=== PATIENT | male | born 1980 | race Caucasian/White ===

== ENCOUNTER 2019-06-15 14:46 | Emergency (ER) | payer OTHER ==
--- OUTSIDE RECORDS SUMMARY | 2019-06-15 14:53 | XMS REPORT | Continuity of Care Document ---
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 Tablets Thalomid 50MG Unknown Bactrim DS tid Unknown 800-160mg Tablets Azathioprine 3 1/2 Tabs Per Unknown 50mg Tablets Day Prednisone as Needed Unknown 5mg Tablets Immunizations Description No Information Available Vital Signs Date Vital Result Comment 04/17/2019 1:43pm BP Systolic 120 mmHg BP Diastolic 80 mmHg Heart Rate 80 /min Respiratory Rate 18 /min Height 69 inches 5'9" Weight 209.00 lb BMI (Body Mass Index) 30.9 kg/m2 Results Test Date Facility Test Result H/L Range Note Dina Panel--LD ([facility]) 04/17/2019 [facility] Rheumatoid Factor <pending> Procedures Description No Information Available Medical Devices Description No Information Available Encounters Description No Information Available Assessments Date Code Description Provider 04/17/2019 L43.9 Lichen planus, unspecified JORGE Lux 04/17/2019 J67.8 Hypersensitivity pneumonitis due to other JORGE Lux organic dusts 04/17/2019 M79.672 Pain in left foot JORGE Lux 04/17/2019 M79.671 Pain in right foot JORGE Lux 04/17/2019 R63.4 Abnormal weight loss JORGE Lux 04/17/2019 G25.0 Essential tremor JORGE Lux 04/17/2019 J30.9 Allergic rhinitis, unspecified JORGE Lux Plan of Treatment Future Appointment(s):05/15/2019 9:30 am - Mahendra Smith M.D. at [facility]/28/2019 9:00 am - Mahendra Smith M.D. at [facility]0204/17/2019 - Annalisa Ochoa, PAL43.9 Lichen planus, unspecifiedComments:Referral to Ui Developer With [employer] - Dr. Rivers Obtain previous records.J67.8 Hypersensitivity pneumonitis due to other organic dustsComments:See Supply Chain Associate for further treatment Dr. Pool79.672 Pain in left footComments:Possibly related to tight Plantar fascia both feet. Roll feet over tennis ball,epsom salt soaksPhysical Therapy if pain nltymkcD42.671 Pain in right footR63.4 Abnormal weight lossG25.0 Essential tremorComments:MonitorFollow up with Dr. Smith in 1 tvvxmG22.9 Allergic rhinitis, unspecifiedComments:Try Xyzal for allergies.AllNew Medication:Xyzal Allergy 24HR 5 mg - 1 tablet once dailyComments:PCMHMedication Management Patient Understands medications he's taking? Yes Are there Barriers to Adherence? No Has the patient been asked about herbal supplements and therapies, and OTC meds? Yes Care Plan1. Patient has been queried about patient's goals/preferences and functional/lifestyle goals at relevant visits. Yes If relevant, describe: N/A2. Treatment goals as explained to the patient: above3. Are there barriers to meeting treatment goals? No If Yes, please describe:4. Self-Management goals as described to the patient: Yes As always, we strongly encourage a healthy diet and making physical activity a part of your every day life. If you have questions about how or where to start, please contact the office.Follow up: Dr. Smith in the next 1-2 months. Functional Status Description No Information Available Mental Status Description No Information Available Referrals Description No Information Available
--- OUTSIDE RECORDS SUMMARY | 2019-06-15 14:53 | XMS REPORT | Continuity of Care Document ---
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 [phone] Medicine Problems Description No Information Available Social History Type Date Description Comments Sex Unknown ETOH Use Currently consumes alcohol Tobacco Use Start: Unknown Patient has never smoked Recreational Drug Use Denies Drug Use Allergies, Adverse Reactions, Alerts Description No Known Drug Allergies Medications Active Medications SIG Qnty Indications Ordering Provider Date Daily-Ismael 1 by mouth 90tabs Other Ordering 05/13/2019 Tablets every day Provider Vitamin C Plus 1 by mouth Other Ordering 05/13/2019 500mg every day Provider Tablets Prednisone 3 tab by mouth 101units J98.4 Barry Galvan MD 05/13/2019 10mg (48) TBPK every day for 30 days then 2 tabs every day for 3 days, then 1 tabs every day for 5 days then stop Bactrim DS 1 tab by mouth 36tabs J98.4 Barry Galvan MD 05/13/2019 800-160mg three times a Tablets week Xyzal 1 by mouth Unknown 5mg Tablets every day Thalomid Unknown 50mg Capsules Bactrim DS 1 by mouth Unknown 800-160mg twice a day Tablets Azathioprine 2 by mouth one Unknown 50mg Tablets time per day Prednisone 1 by mouth Unknown 5mg Tablets every day Immunizations Description No Information Available Vital Signs Date Vital Result Comment 05/13/2019 10:58am Height 72 inches 6'0" Weight 209.00 lb Heart Rate 74 /min BP Systolic 132 mmHg BP Diastolic 82 mmHg O2 % BldC Oximetry 99 % BMI (Body Mass Index) 28.3 kg/m2 Results Description No Information Available Procedures Description No Information Available Medical Devices Description No Information Available Encounters Description No Information Available Assessments Date Code Description Provider 05/13/2019 J98.4 Other disorders of lung Barry Galvan MD Plan of Treatment 05/13/2019 - Barry Galvan MDJ98.4 Other disorders of lungNew Medication: Prednisone 10 mg (48) - 3 tab by mouth every day for 30 days then 2 tabs every day for 3 days, then 1 tabs every day for 5 days then stopBactrim DS 800-160 mg - 1 tab by mouth three times a weekComments:I will increase the patient's prednisone to 30 mg a day for 1 month which is a treatment he has donein the past. He will continue Bactrim for pneumocystis prophylaxis 3 times a week he will use saline nasal spray. We will review the labs the CAT scan PFTs and echocardiogram from [place]. The patient should continue age-appropriate cancer screening as the patient has had weight loss. Functional Status Description No Information Available Mental Status Description No Information Available Referrals Description No Information Available
[2019-06-15 15:09] VITALS: BP 139/86
--- NOTE | 2019-06-15 16:26 | UC ---
FLU HPI - HPI Summary HPI Summary: 38-year-old male with history of hypersensitivity pneumonitis presents with 7-8 day history of cold-like symptoms. States initially and some nasal congestion and runny nose and then after approximately 4-5 days began developing a productive cough. Over the last 2-3 days he has had increased shortness of breath and fatigue. Cough is occasionally productive. Patient is currently on azathioprine and low dose prednisone for his hypersensitivity pneumonitis is also taking Bactrim DS 1 tablet 3 times a week for infection prophylaxis. Has appointment with his sales development representative scheduled in one week. Denies fever, chills , ear pain, sore throat, chest pain, or wheezing. - History of Current Complaint Chief Complaint: UCRespiratory Stated Complaint: COLD, SOB , BODYACHES Time Seen by Provider: 06/15/19 16:04 Hx Obtained From: Patient Pain Intensity: 0 - Allergy/Home Medications Allergies/Adverse Reactions: Allergies Allergy/AdvReac Type Severity Reaction Status Date / Time No Known Allergies Allergy Verified 06/15/19 15:10 Home Medications: Home Medications Sulfamethox/Trimethoprim DS* [Bactrim DS 800/160 TAB*] 1 tab PO EVERY OTHER DAY 06/15/19 [History Confirmed 06/15/19] azaTHIOprine TAB(*) [Imuran TAB(*)] 175 mg PO DAILY 06/15/19 [History Confirmed 06/15/19] predniSONE [Prednisone 5 MG TAB] 1 tab PO DAILY 06/15/19 [History Confirmed 01/25] PMH/Surg Hx/FS Hx/Imm Hx Respiratory History: Other - Hypersensitivity pneumonitis - Surgical History Surgical History: None - Family History Known Family History: Positive: Non-Contributory - Social History Occupation: Employed Full-time Lives: With Family Alcohol Use: Occasionally Substance Use Type: None Smoking Status (MU): Never Smoked Tobacco Review of Systems All Other Systems Reviewed And Are Negative: Yes Constitutional: Positive: Fatigue. Negative: Fever, Chills Eyes: Negative: Drainage, Eye Redness ENT: Positive: Nasal Discharge, Sinus Congestion, Sinus Pain/Tenderness. Negative: Sore Throat, Ear Ache Respiratory: Positive: Shortness Of Breath, Cough Cardiovascular: Negative: Palpitations, Chest Pain Gastrointestinal: Negative: Abdominal Pain, Vomiting, Diarrhea, Nausea Genitourinary: Positive: Negative Musculoskeletal: Positive: Negative Neurological: Positive: Negative Is Patient Immunocompromised?: No Physical Exam - Summary Physical Exam Summary: GENERAL APPEARANCE: Well developed, well nourished, alert and cooperative, and appears to be in no acute distress. EYES: Conjunctiva clear. No drainage. EARS: External auditory canals and tympanic membranes clear, hearing grossly intact. NOSE: Mild-moderate nasal congestion. No nasal discharge. THROAT: Pharynx normal. No tonsilar inflammation, swelling, exudate, or lesions. Uvula midline. NECK: Neck supple, non-tender without lymphadenopathy. CARDIAC: Normal S1 and S2. No S3, S4 or murmurs. Rhythm is regular. There is no peripheral edema, cyanosis or pallor. Extremities are warm and well perfused. Capillary refill is less than 2 seconds. Peripheral pulses intact. LUNGS: Mildly diminished breath sounds with diffuse crackles thoughout all lung maldonado. Loose, productive cough. ABDOMEN: Positive bowel sounds. Soft, nondistended, nontender. No guarding or rebound. No masses or hepatosplenomegally. MUSKULOSKELETAL: ROM intact to all extremities. No joint erythema or tenderness. Normal muscular development. Normal gait. SKIN: Skin normal color, texture and turgor with no lesions or eruptions. Triage Information Reviewed: Yes Vital Signs: Initial Vital Signs Temp 97.9 F 06/15/19 15:04 Pulse 97 06/15/19 15:04 Resp 16 06/15/19 15:04 BP 139/86 06/15/19 15:04 Pulse Ox 94 06/15/19 15:04 Vital Signs Reviewed: Yes Flu Course/Dx - Course Course Of Treatment: 38-year-old male with history of hypersensitivity pneumonitis presents with 7-8 day history of cold-like symptoms. States initially and some nasal congestion and runny nose and then after approximately 4-5 days began developing a productive cough. Over the last 2-3 days he has had increased shortness of breath and fatigue. Cough is occasionally productive. Patient is currently on azathioprine and low dose prednisone for his hypersensitivity pneumonitis is also taking Bactrim DS 1 tablet 3 times a week for infection prophylaxis. Has appointment with his sales development representative scheduled in one week. Denies fever, chills , ear pain, sore throat, chest pain, or wheezing. Afebrile. Room air pulse ox was 94% remaining vital signs were stable. Patient was in no acute distress and had some mild to moderate nasal congestion, mildly diminished bilateral breath sounds with diffuse crackles, loose productive cough, and otherwise unremarkable exam. Discussed with the patient that his symptoms are likely from an upper respiratory infection that his exacerbating with his underlying respiratory condition. Considering the duration and worsening of symptoms I will plan to treat him with levofloxacin 750 mg daily 7 days and increase his prednisone and start him on a taper. We discussed that since we are initiating treatment that we will defer radiological imaging at this time. He is to keep his appointment with his sales development representative or follow-up with his primary care provider within one week for recheck of symptoms. Anticipatory guidance and warning symptoms requiring immediate evaluation in the emergency room were reviewed with the patient. Verbalizes understanding and agrees with plan of care. - Differential Dx/Diagnosis Differential Diagnosis/HQI/PQRI: Bronchitis, Influenza, Pneumonia, Upper Respiratory Infection Provider Diagnosis: Hypersensitivity pneumonitis, URI (upper respiratory infection) Discharge ED - Sign-Out/Discharge Documenting (check all that apply): Patient Departure All imaging exams completed and their final reports reviewed: No Studies - Discharge Plan Condition: Stable Disposition: HOME Prescriptions: Levofloxacin TAB* [Levaquin TAB*] 750 mg PO DAILY #7 tab predniSONE TAB* [Deltasone 10 MG TAB*] 10 mg PO DAILY #30 tab Patient Education Materials: Upper Respiratory Infection (ED) Referrals: No Primary Care Phys,NOPCP [Primary Care Provider] - Additional Instructions: Your history and exam are consistent with an upper respiratory infection. With your history of hypersensitivity pneumonitis as well as duration and worsening of symptoms we will treat you with an antibiotic. Start levofloxacin 750 mg daily for 7 days. Stop the Bactrim while taking this antibiotic. You may resume your Bactrim as previously directed once you have completed the levofloxacin. We will increase your prednisone and start you on a taper. Start prednisone 40 mg once daily for 3 days, then 30 mg once daily for 3 days, then 20 mg once daily for 3 days, then resume your 10 mg a day dose. Get plenty of rest. Drink plenty of fluids. Run a cool mist humidifer in your room at night. Take over the counter acetaminophen (Tylenol) or ibuprofen (Advil, Motrin) according to directions as needed for pain or fever. Follow up with your primary care provider or your sales development representative within 7 days for recheck of symptoms. Seek immediate medical attention in the emergency room if you have fever greater than 100.5 F despite taking acetaminophen or ibuprofen, have chest pain , difficulty breathing, or have any worsening of symptoms. - Billing Disposition and Condition Condition: STABLE Disposition: Home
== END 2019-06-15 17:02 | disposition home or self-care (01) ==
LOC: UCEAST 14:46
DX: J06.9 Acute upper respiratory infection, unspecified (principal); J67.9 Hypersensitivity pneumonitis due to unspecified organic dust; R06.02 Shortness of breath; J34.89 Other specified disorders of nose and nasal sinuses
CPT/HCPCS: 99212; G0463

== ENCOUNTER 2020-01-23 10:08 | Inpatient (IN) ==
[2020-01-23] MEDS ORDERED: Lactated Ringers 1000 ml BAG 1,000 ML IV ONE (10:29)
[2020-01-23] MEDS ORDERED: Magnesium Sulfate 2 gm BAG 2 GM/50 ML BAG IVPB ONE ×2 (11:04→11:46)
[2020-01-23] MEDS ORDERED: Dexamethasone IV 4 MG/ML 5 ML VIAL (20 MG) IVPB ONE (11:04)
[2020-01-23] MEDS ORDERED: Albuterol HFA INHALER 8 gm MDI INH ONE (11:05)
[2020-01-23 11:11] LABS: ABS Basophils 0.1 10^3/ul (0-0.2); ABS Eosinophils 0.2 10^3/ul (0-0.6); ABS Lymphocytes 0.3 10^3/ul (1.0-4.8); ABS Monocytes 0.9 10^3/ul (0-0.8); ABS Neutrophils 11.1 10^3/ul (1.5-7.7); Eosinophil % 1.3 %; Hematocrit 44 % (42-52); Hemoglobin 15.4 g/dL (14.0-18.0); Lymphocyte % 2.5 %; Mean Corpuscular HGB Conc 35 g/dL (31-36); Mean Corpuscular Hemoglobin 30 pg (27-31); Mean Corpuscular Volume 86 fL (80-94); Mean Platelet Volume 8.2 fL (7.4-10.4); Nucleated Red Blood Cells % 0.2; Platelet Count 137 10^3/uL (150-450); Red Blood Count 5.14 10^6 /uL (4.18-5.48); Red Cell Distribution Width 14 % (10-15); White Blood Count 12.5 10^3/uL (3.5-10.8)
[2020-01-23] MEDS ORDERED: Iodixanol (CONTRAST) 320 MG/ML 100 ML SDV IV ONE (11:39)
[2020-01-23 11:44] LABS: Troponin I 0.01 ng/mL (<0.03)
[2020-01-23 11:53] LABS: BUN/Creatinine Ratio 13.1 (8-20); EGFR African American 93.1 (>60); EGFR Non-African American 76.9 (>60); Magnesium 1.8 mg/dL (1.9-2.7); Potassium 4.1 mmol/L (3.5-5.0)
[2020-01-23] MEDS ORDERED: Vancomycin 1,000 MG in NS 0.9% 250 ml 250 ML IVPB SCH (14:00)
[2020-01-23] MEDS ORDERED: methylPREDNISolone 125 mg 2 ML VIAL IV ONE (14:07)
[2020-01-23] MEDS ORDERED: Vancomycin 1500 MG IV - x ONCE IVPB ONE (14:30)
[2020-01-23] MEDS ORDERED: Vancomycin per Pharmacy 1 EA NOTE FOLLOW UP PRN (15:15)
[2020-01-23] MEDS: Levofloxacin 750 MG IVPREMIX 750 MG/150 ML BAG IVPB SCH (18:12)
[2020-01-23] MEDS: Morphine 2 MG/ML SYRINGE IV PRN ×2 (20:08→22:06)
[2020-01-23] MEDS: methylPREDNISolone 125 mg 2 ML VIAL IV SCH (21:59)
[2020-01-23] MEDS: Vancomycin 1,000 MG in NS 0.9% 250 ml 250 ML IV SCH (22:00)
[2020-01-24] MEDS: Morphine 2 MG/ML SYRINGE IV PRN ×3 (01:13→20:04)
[2020-01-24] MEDS ORDERED: Morphine 2 MG/ML SYRINGE IV ONE (02:30)
[2020-01-24] MEDS ORDERED: Piperacillin/Tazobac ADVAN 3.375 GM in NS 0.9% 100 ml BAG 100 ML IVPB ONE (04:12)
[2020-01-24] MEDS ORDERED: Albuterol/Ipratropium NEB.SOL (2.5/0.5 MG) 3 ML NEB.SOLN INH PRN (04:25)
[2020-01-24] MEDS ORDERED: Albuterol/Ipratropium NEB.SOL (2.5/0.5 MG) 3 ML NEB.SOLN ONE (04:26)
[2020-01-24 04:40] LABS: C Reactive Protein 159.58 mg/L (<8.01)
[2020-01-24 04:53] LABS: ABS Lymphocytes 0.2 10^3/ul (1.0-4.8); ABS Monocytes 0.1 10^3/ul (0-0.8); ABS Neutrophils 11.3 10^3/ul (1.5-7.7); Hematocrit 43 % (42-52); Lymphocyte % 1.6 %; Mean Corpuscular HGB Conc 35 g/dL (31-36); Mean Corpuscular Hemoglobin 30 pg (27-31); Mean Corpuscular Volume 85 fL (80-94); Mean Platelet Volume 8.5 fL (7.4-10.4); Platelet Count 155 10^3/uL (150-450); Red Blood Count 5.08 10^6 /uL (4.18-5.48); Red Cell Distribution Width 14 % (10-15); White Blood Count 11.6 10^3/uL (3.5-10.8)
[2020-01-24] MEDS ORDERED: Zosyn per Pharmacy NOTE FOLLOW UP SCH (05:00)
[2020-01-24 05:16] LABS: Calcium 7.9 mg/dL (8.6-10.3); Potassium 4.6 mmol/L (3.5-5.0)
[2020-01-24 05:22] LABS: BUN/Creatinine Ratio 15.8 (8-20); EGFR African American 106.8 (>60); EGFR Non-African American 88.3 (>60)
[2020-01-24 05:34] LABS: C Reactive Protein 188.33 mg/L (<8.01)
[2020-01-24] MEDS: methylPREDNISolone 125 mg 2 ML VIAL IV SCH ×3 (06:07→18:09)
[2020-01-24] MEDS: Vancomycin 1,000 MG in NS 0.9% 250 ml 250 ML IV SCH ×2 (06:08→15:08)
[2020-01-24] MEDS: methylPREDNISolone 125 mg 2 ML VIAL IM SCH ×2 (08:21→10:07)
[2020-01-24] MEDS: Furosemide 20 mg/2 ml IV VIAL IV SLOW PU ONE (08:27)
[2020-01-24] MEDS ORDERED: ZOSYN 3.375 GM Q8H per EXTENDED INFUSION IV SCH (09:00)
[2020-01-24] MEDS ORDERED: Vancomycin Trough Check NOTE FOLLOW UP ONE (14:00)
[2020-01-24] MEDS ORDERED: methylPREDNISolone SOD 40 mg/ml 1 ml VIAL IV SCH (14:00)
[2020-01-24] MEDS ORDERED: SULFAMETHOXAZOLE IVPB SCH (14:30)
[2020-01-24] MEDS ORDERED: D5W IVPB SCH (14:30)
[2020-01-24] MEDS ORDERED: TRIMETH IVPB SCH (14:30)
[2020-01-24] MEDS: Levofloxacin 750 MG IVPREMIX 750 MG/150 ML BAG IVPB SCH (16:36)
[2020-01-24] MEDS: Albuterol/Ipratropium NEB.SOL (2.5/0.5 MG) 3 ML NEB.SOLN INH SCH (19:12)
[2020-01-24] MEDS: SULFAMETHOXAZOLE IVPB SCH (22:10)
[2020-01-24] MEDS: TRIMETH IVPB SCH (22:10)
[2020-01-24] MEDS: D5W IVPB SCH (22:10)
[2020-01-24] MEDS: Vancomycin 1,250 MG in NS 0.9% 250 ml 250 ML IV SCH (22:20)
[2020-01-25] MEDS: Albuterol/Ipratropium NEB.SOL (2.5/0.5 MG) 3 ML NEB.SOLN INH SCH ×3 (00:59→14:12)
[2020-01-25] MEDS: methylPREDNISolone 125 mg 2 ML VIAL IV SCH ×2 (01:56→09:23)
[2020-01-25 04:48] LABS: ABS Lymphocytes 0.2 10^3/ul (1.0-4.8); ABS Monocytes 0.7 10^3/ul (0-0.8); ABS Neutrophils 16.9 10^3/ul (1.5-7.7); Hematocrit 38 % (42-52); Hemoglobin 13.1 g/dL (14.0-18.0); Mean Corpuscular HGB Conc 35 g/dL (31-36); Mean Corpuscular Hemoglobin 29 pg (27-31); Mean Corpuscular Volume 85 fL (80-94); Platelet Count 182 10^3/uL (150-450); Red Blood Count 4.44 10^6 /uL (4.18-5.48); Red Cell Distribution Width 14 % (10-15); White Blood Count 17.8 10^3/uL (3.5-10.8)
[2020-01-25 05:09] LABS: Calcium 8.3 mg/dL (8.6-10.3); EGFR African American 93.1 (>60); EGFR Non-African American 76.9 (>60); Potassium 4.4 mmol/L (3.5-5.0)
[2020-01-25] MEDS: SULFAMETHOXAZOLE IVPB SCH ×3 (06:09→22:31)
[2020-01-25] MEDS: D5W IVPB SCH ×3 (06:09→22:31)
[2020-01-25] MEDS: Vancomycin 1,250 MG in NS 0.9% 250 ml 250 ML IV SCH ×3 (06:09→22:01)
[2020-01-25] MEDS: TRIMETH IVPB SCH ×3 (06:09→22:31)
[2020-01-25] MEDS ORDERED: guaiFENesin 100 mg/5 ml LIQ unit dose cup PO PRN (07:58)
[2020-01-25] MEDS ORDERED: Furosemide 20 mg/2 ml IV VIAL IV SLOW PU ONE (08:17)
[2020-01-25] MEDS ORDERED: Succinylcholine 200 mg VIAL 20 mg/ml 10 ml VIAL (200 mg) ONE (10:55)
[2020-01-25] MEDS ORDERED: Phenylephrine IV 10 MG/ML 1 ml VIAL ONE (11:03)
[2020-01-25] MEDS ORDERED: Propofol 10 MG/ML 20 ML BTL ONE (11:15)
[2020-01-25] MEDS ORDERED: Etomidate 40 mg/20 ml (2 MG/ML) 20 ml VIAL (40 mg) ONE (11:15)
[2020-01-25] MEDS ORDERED: fentaNYL 250 mcg/5 ml 50 MCG/ML 5 ml VIAL (250 MCG) ONE (11:15)
[2020-01-25] MEDS: Propofol 10 mg/ml 100 ML BTL 100 ML ONE ×2 (11:30→13:29)
[2020-01-25] MEDS ORDERED: fentaNYL 100 mcg/2 ml 50 MCG/ML VIAL ONE ×3 (11:46→18:28)
[2020-01-25] MEDS ORDERED: Propofol 10 mg/ml 100 ML BTL 100 ML ONE (13:26)
[2020-01-25] MEDS: Enoxaparin 40 MG/0.4 ML SYR SUBCUT SCH (13:39)
[2020-01-25] MEDS: Chlorhexidine MOUTHWASH 0.12% 15 ML UDC SWISH SPIT SCH ×4 (13:39→22:01)
[2020-01-25] MEDS ORDERED: Midazolam 2 mg/2 ml VIAL 1 mg/ml 2 ml VIAL (2 mg) ONE ×3 (13:49→17:43)
[2020-01-25] MEDS ORDERED: Rocuronium 50 mg VIAL 10 mg/ml 5 ml VIAL (50 mg) ONE (13:51)
[2020-01-25] MEDS ORDERED: Propofol 10 mg/ml 100 ML BTL 100 ML IV SCH (14:45)
[2020-01-25] MEDS: Cisatracurium 100 MG in NS 0.9% 250 ml 200 ML IV SCH (15:06)
[2020-01-25] MEDS: fentaNYL 100 mcg/2 ml 50 MCG/ML VIAL IV PRN ×3 (15:19→15:34)
[2020-01-25] MEDS: Levofloxacin 750 MG IVPREMIX 750 MG/150 ML BAG IVPB SCH (15:53)
[2020-01-25] MEDS: methylPREDNISolone SOD 40 mg/ml 1 ml VIAL IV SCH (17:02)
[2020-01-25] MEDS: Midazolam 50 MG VIAL IV DRIP 50 ML IV SCH (17:08)
[2020-01-25] MEDS: fentaNYL INFUSION 50 MCG/ML 2,500 MCG/50 ML BAG IV SCH (17:09)
[2020-01-25] MEDS: Famotidine IV 10 MG/ML 2 ml VIAL (20 mg) IV SLOW PU SCH (21:12)
[2020-01-25] MEDS ORDERED: Norepinephrine 16MCG/ML IVPRE 4,000 MCG/250 ML BAG IV ONE (22:05)
[2020-01-25] MEDS: Norepinephrine 16MCG/ML IVPRE 4,000 MCG/250 ML BAG IV SCH (22:24)
[2020-01-26] MEDS: Artificial Tear OPHTH.OINT 3.5 GM BOTH EYES SCH ×6 (01:05→20:10)
[2020-01-26] MEDS: Chlorhexidine MOUTHWASH 0.12% 15 ML UDC SWISH SPIT SCH ×7 (01:25→21:52)
[2020-01-26] MEDS: methylPREDNISolone SOD 40 mg/ml 1 ml VIAL IV SCH ×3 (01:25→17:42)
[2020-01-26] MEDS: Cisatracurium 100 MG in NS 0.9% 250 ml 200 ML IV SCH ×2 (02:05→12:11)
[2020-01-26] MEDS: Midazolam 50 MG VIAL IV DRIP 50 ML IV SCH ×2 (03:14→16:05)
[2020-01-26 04:38] LABS: ABS Lymphocytes 0.2 10^3/ul (1.0-4.8); ABS Monocytes 0.8 10^3/ul (0-0.8); ABS Neutrophils 14.2 10^3/ul (1.5-7.7); Eosinophil % 0.3 %; Hematocrit 35 % (42-52); Hemoglobin 12.2 g/dL (14.0-18.0); Lymphocyte % 1.5 %; Mean Corpuscular HGB Conc 35 g/dL (31-36); Mean Corpuscular Hemoglobin 30 pg (27-31); Mean Corpuscular Volume 85 fL (80-94); Mean Platelet Volume 7.8 fL (7.4-10.4); Platelet Count 224 10^3/uL (150-450); Red Blood Count 4.13 10^6 /uL (4.18-5.48); Red Cell Distribution Width 14 % (10-15); White Blood Count 15.3 10^3/uL (3.5-10.8)
[2020-01-26 04:55] LABS: BUN/Creatinine Ratio 15.8 (8-20); EGFR African American 81.6 (>60); EGFR Non-African American 67.4 (>60)
[2020-01-26] MEDS ORDERED: Vancomycin Trough Check NOTE FOLLOW UP ONE (05:30)
[2020-01-26] MEDS: Vancomycin 1,250 MG in NS 0.9% 250 ml 250 ML IV SCH (05:55)
[2020-01-26] MEDS: TRIMETH IVPB SCH ×3 (05:56→21:58)
[2020-01-26] MEDS: SULFAMETHOXAZOLE IVPB SCH ×3 (05:56→21:58)
[2020-01-26] MEDS: D5W IVPB SCH ×3 (05:56→21:58)
[2020-01-26] MEDS: Famotidine IV 10 MG/ML 2 ml VIAL (20 mg) IV SLOW PU SCH ×2 (08:20→21:51)
[2020-01-26] MEDS ORDERED: Perflutren Lipid Microsphere 3 ML VIAL ONE (08:44)
[2020-01-26] MEDS ORDERED: Furosemide 20 mg/2 ml IV VIAL IV ONE (10:04)
[2020-01-26] MEDS: fentaNYL 100 mcg/2 ml 50 MCG/ML VIAL IV PRN ×3 (13:35→23:21)
[2020-01-26] MEDS: Enoxaparin 40 MG/0.4 ML SYR SUBCUT SCH (13:51)
[2020-01-26] MEDS ORDERED: Midazolam 2 mg/2 ml VIAL 1 mg/ml 2 ml VIAL (2 mg) ONE ×2 (14:25→17:04)
[2020-01-26] MEDS: Levofloxacin 750 MG IVPREMIX 750 MG/150 ML BAG IVPB SCH (15:17)
[2020-01-26] MEDS ORDERED: Furosemide 20 mg/2 ml IV VIAL ONE (15:50)
[2020-01-26] MEDS: Furosemide 20 mg/2 ml IV VIAL IV SLOW PU ONE (15:54)
[2020-01-26] MEDS ORDERED: fentaNYL 100 mcg/2 ml 50 MCG/ML VIAL ONE (17:31)
[2020-01-26] MEDS ORDERED: Sodium Bicarbonate 8.4% SYR 50 ml SYRINGE IV ONE (17:43)
[2020-01-26] MEDS ORDERED: Sodium Bicarbonate 8.4% SYR 50 ml SYRINGE ONE (17:49)
[2020-01-26] MEDS: Vancomycin 1,000 MG in NS 0.9% 250 ml 250 ML IV SCH (18:00)
[2020-01-26] MEDS ORDERED: Midazolam 2 mg/2 ml VIAL 1 mg/ml 2 ml VIAL (2 mg) IV SLOW PU PRN (18:22)
[2020-01-26] MEDS: fentaNYL INFUSION 50 MCG/ML 2,500 MCG/50 ML BAG IV SCH (23:47)
[2020-01-27] MEDS: Cisatracurium 100 MG in NS 0.9% 250 ml 200 ML IV SCH ×2 (00:04→08:55)
[2020-01-27] MEDS: Artificial Tear OPHTH.OINT 3.5 GM BOTH EYES SCH ×6 (00:05→20:50)
[2020-01-27] MEDS ORDERED: fentaNYL 100 mcg/2 ml 50 MCG/ML VIAL IV ONE (01:00)
[2020-01-27] MEDS: Vancomycin 1,000 MG in NS 0.9% 250 ml 250 ML IV SCH ×3 (02:17→19:04)
[2020-01-27] MEDS: Chlorhexidine MOUTHWASH 0.12% 15 ML UDC SWISH SPIT SCH ×6 (02:17→22:37)
[2020-01-27] MEDS: Norepinephrine 16MCG/ML IVPRE 4,000 MCG/250 ML BAG IV SCH (02:24)
[2020-01-27] MEDS: Midazolam 50 MG VIAL IV DRIP 50 ML IV SCH (05:46)
[2020-01-27 06:00] LABS: ABS Lymphocytes 0.2 10^3/ul (1.0-4.8); ABS Monocytes 0.9 10^3/ul (0-0.8); ABS Neutrophils 8.5 10^3/ul (1.5-7.7); Eosinophil % 0.1 %; Hematocrit 34 % (42-52); Hemoglobin 11.6 g/dL (14.0-18.0); Lymphocyte % 2.3 %; Mean Corpuscular HGB Conc 34 g/dL (31-36); Mean Corpuscular Hemoglobin 29 pg (27-31); Mean Corpuscular Volume 86 fL (80-94); Mean Platelet Volume 7.6 fL (7.4-10.4); Platelet Count 137 10^3/uL (150-450); Red Blood Count 3.97 10^6 /uL (4.18-5.48); Red Cell Distribution Width 14 % (10-15); White Blood Count 9.6 10^3/uL (3.5-10.8)
[2020-01-27 06:19] LABS: BUN/Creatinine Ratio 19.1 (8-20); Calcium 7.7 mg/dL (8.6-10.3); EGFR African American 90.2 (>60); EGFR Non-African American 74.5 (>60)
[2020-01-27 06:22] LABS: Potassium 5.1 mmol/L (3.5-5.0)
[2020-01-27] MEDS: D5W IVPB SCH ×3 (06:33→22:36)
[2020-01-27] MEDS: SULFAMETHOXAZOLE IVPB SCH ×3 (06:33→22:36)
[2020-01-27] MEDS: TRIMETH IVPB SCH ×3 (06:33→22:36)
[2020-01-27 06:56] LABS: Magnesium 2.2 mg/dL (1.9-2.7)
[2020-01-27] MEDS: Famotidine IV 10 MG/ML 2 ml VIAL (20 mg) IV SLOW PU SCH ×2 (08:53→20:50)
[2020-01-27] MEDS ORDERED: Morphine 10 MG/ML VIAL (1 ml) ONE (09:59)
[2020-01-27] MEDS ORDERED: LORazepam 2 mg VIAL 1 ml ONE ×2 (10:09)
[2020-01-27] MEDS ORDERED: Lorazepam PYXIS KEY ONE (10:09)
[2020-01-27] MEDS ORDERED: LORazepam 2 mg VIAL 1 ml IV PUSH ONE (10:15)
[2020-01-27] MEDS ORDERED: Morphine 2 MG/ML SYRINGE IV ONE (10:15)
[2020-01-27] MEDS: fentaNYL INFUSION 50 MCG/ML 2,500 MCG/50 ML BAG IV SCH (10:35)
[2020-01-27] MEDS: Enoxaparin 40 MG/0.4 ML SYR SUBCUT SCH (14:30)
[2020-01-27] MEDS: Levofloxacin 750 MG IVPREMIX 750 MG/150 ML BAG IVPB SCH (15:48)
[2020-01-27] MEDS ORDERED: Midazolam 50 MG VIAL IV DRIP 50 ML IV SCH (16:30)
[2020-01-27] MEDS: fentaNYL 100 mcg/2 ml 50 MCG/ML VIAL IV PRN ×2 (16:33→17:32)
[2020-01-27] MEDS ORDERED: Vancomycin Trough Check NOTE FOLLOW UP ONE (17:30)
[2020-01-27] MEDS ORDERED: fentaNYL 100 mcg/2 ml 50 MCG/ML VIAL IV PRN ×2 (17:40→22:04)
[2020-01-27] MEDS: methylPREDNISolone SOD 40 mg/ml 1 ml VIAL IV SCH (19:03)
[2020-01-27] MEDS ORDERED: fentaNYL 100 mcg/2 ml 50 MCG/ML VIAL ONE (21:40)
[2020-01-27] MEDS: Dexmedetomidine 1,000 MCG in NS 0.9% 250 ml 240 ML IV SCH (22:57)
[2020-01-28] MEDS: Artificial Tear OPHTH.OINT 3.5 GM BOTH EYES SCH ×6 (00:44→21:15)
[2020-01-28] MEDS: fentaNYL INFUSION 50 MCG/ML 2,500 MCG/50 ML BAG IV SCH ×3 (00:45→22:21)
[2020-01-28] MEDS: Chlorhexidine MOUTHWASH 0.12% 15 ML UDC SWISH SPIT SCH ×6 (01:27→21:46)
[2020-01-28] MEDS: Vancomycin 1,000 MG in NS 0.9% 250 ml 250 ML IV SCH ×2 (01:27→11:00)
[2020-01-28 05:48] LABS: ABS Lymphocytes 0.2 10^3/ul (1.0-4.8); ABS Monocytes 0.4 10^3/ul (0-0.8); ABS Neutrophils 5.9 10^3/ul (1.5-7.7); Eosinophil % 0.1 %; Hematocrit 33 % (42-52); Hemoglobin 11.1 g/dL (14.0-18.0); Lymphocyte % 2.5 %; Mean Corpuscular HGB Conc 34 g/dL (31-36); Mean Corpuscular Hemoglobin 29 pg (27-31); Mean Corpuscular Volume 87 fL (80-94); Mean Platelet Volume 7.9 fL (7.4-10.4); Platelet Count 117 10^3/uL (150-450); Red Blood Count 3.81 10^6 /uL (4.18-5.48); Red Cell Distribution Width 14 % (10-15); White Blood Count 6.5 10^3/uL (3.5-10.8)
[2020-01-28 06:04] LABS: BUN/Creatinine Ratio 18.3 (8-20); Calcium 7.7 mg/dL (8.6-10.3); EGFR African American 91.1 (>60); EGFR Non-African American 75.3 (>60)
[2020-01-28 06:05] LABS: Potassium 5.7 mmol/L (3.5-5.0)
[2020-01-28] MEDS: SULFAMETHOXAZOLE IVPB SCH (06:27)
[2020-01-28] MEDS: TRIMETH IVPB SCH (06:27)
[2020-01-28] MEDS: D5W IVPB SCH (06:27)
[2020-01-28] MEDS: Famotidine IV 10 MG/ML 2 ml VIAL (20 mg) IV SLOW PU SCH ×2 (07:55→21:15)
[2020-01-28] MEDS: methylPREDNISolone SOD 40 mg/ml 1 ml VIAL IV SCH ×2 (07:58→19:11)
[2020-01-28] MEDS: Enoxaparin 40 MG/0.4 ML SYR SUBCUT SCH (14:09)
[2020-01-28] MEDS ORDERED: Docusate LIQ 100 MG/10 ML UDC PO PRN (16:31)
[2020-01-28 19:52] LABS: Aspergillus fumigatus IgG Ab 21.4 mg/L (<=102); Micropolyspora faeni IgG Ab <2.0 mg/L (<=13.2); Thermoactinomyces vulgaris IgG 3.7 mg/L (<=23.9)
[2020-01-29] MEDS: Artificial Tear OPHTH.OINT 3.5 GM BOTH EYES SCH ×6 (00:14→20:14)
[2020-01-29] MEDS: Dexmedetomidine 1,000 MCG in NS 0.9% 250 ml 240 ML IV SCH (00:58)
[2020-01-29] MEDS: Chlorhexidine MOUTHWASH 0.12% 15 ML UDC SWISH SPIT SCH ×6 (01:49→23:00)
[2020-01-29 05:47] LABS: Albumin/Globulin Ratio 1.3 (1-3); BUN/Creatinine Ratio 23.6 (8-20); Calcium 8.1 mg/dL (8.6-10.3); EGFR African American 94.1 (>60); EGFR Non-African American 77.8 (>60); Globulin 2.4 g/dL (2-4); Hematocrit 34 % (42-52); Hemoglobin 11.5 g/dL (14.0-18.0); Magnesium 2.1 mg/dL (1.9-2.7); Mean Corpuscular HGB Conc 34 g/dL (31-36); Mean Corpuscular Hemoglobin 29 pg (27-31); Mean Corpuscular Volume 86 fL (80-94); Mean Platelet Volume 8.3 fL (7.4-10.4); Platelet Count 133 10^3/uL (150-450); Red Blood Count 3.95 10^6 /uL (4.18-5.48); Red Cell Distribution Width 14 % (10-15); Total Bilirubin 0.2 mg/dL (0.2-1.0); Total Protein 5.4 g/dL (6.4-8.9); White Blood Count 8.1 10^3/uL (3.5-10.8)
[2020-01-29 05:49] LABS: Potassium 5.2 mmol/L (3.5-5.0)
[2020-01-29] MEDS: Famotidine IV 10 MG/ML 2 ml VIAL (20 mg) IV SLOW PU SCH ×2 (08:35→20:13)
[2020-01-29] MEDS: methylPREDNISolone SOD 40 mg/ml 1 ml VIAL IV SCH ×2 (08:35→20:13)
[2020-01-29] MEDS: Polyethylene Glycol 3350 17 GM PACKET PO SCH (08:42)
[2020-01-29] MEDS ORDERED: fentaNYL INFUSION 50 MCG/ML 2,500 MCG/50 ML BAG IV SCH ×2 (09:00)
[2020-01-29] MEDS ORDERED: Docusate LIQ 100 MG/10 ML UDC PO SCH (09:00)
[2020-01-29] MEDS: Enoxaparin 40 MG/0.4 ML SYR SUBCUT SCH (13:19)
[2020-01-30] MEDS: Chlorhexidine MOUTHWASH 0.12% 15 ML UDC SWISH SPIT SCH ×3 (02:19→11:17)
[2020-01-30] MEDS: Artificial Tear OPHTH.OINT 3.5 GM BOTH EYES SCH ×3 (02:19→08:39)
[2020-01-30 04:53] LABS: Hematocrit 34 % (42-52); Hemoglobin 11.8 g/dL (14.0-18.0); Mean Corpuscular HGB Conc 35 g/dL (31-36); Mean Corpuscular Hemoglobin 30 pg (27-31); Mean Corpuscular Volume 85 fL (80-94); Mean Platelet Volume 8.1 fL (7.4-10.4); Platelet Count 134 10^3/uL (150-450); Red Blood Count 3.99 10^6 /uL (4.18-5.48); Red Cell Distribution Width 14 % (10-15); White Blood Count 8.1 10^3/uL (3.5-10.8)
[2020-01-30 05:09] LABS: Albumin/Globulin Ratio 1.3 (1-3); BUN/Creatinine Ratio 26.3 (8-20); C Reactive Protein 13.74 mg/L (<8.01); Calcium 8.6 mg/dL (8.6-10.3); EGFR African American 106.8 (>60); EGFR Non-African American 88.3 (>60); Globulin 2.4 g/dL (2-4); Magnesium 1.9 mg/dL (1.9-2.7); Potassium 4.7 mmol/L (3.5-5.0); Total Bilirubin 0.2 mg/dL (0.2-1.0); Total Protein 5.4 g/dL (6.4-8.9)
[2020-01-30] MEDS: Dexmedetomidine 1,000 MCG in NS 0.9% 250 ml 240 ML IV SCH (06:00)
[2020-01-30] MEDS: methylPREDNISolone SOD 40 mg/ml 1 ml VIAL IV SCH ×2 (08:39→19:36)
[2020-01-30] MEDS: Famotidine IV 10 MG/ML 2 ml VIAL (20 mg) IV SLOW PU SCH ×2 (08:40→21:06)
[2020-01-30] MEDS: Polyethylene Glycol 3350 17 GM PACKET PO SCH (08:40)
[2020-01-30] MEDS: Enoxaparin 40 MG/0.4 ML SYR SUBCUT SCH (15:10)
[2020-01-30 18:59] LABS: Blood Urea Nitrogen 26 mg/dL (6-24); CO2 Carbon Dioxide 37 mmol/L (22-32); Calcium 9.1 mg/dL (8.6-10.3); Chloride 97 mmol/L (101-111); EGFR African American 109.4 (>60); EGFR Non-African American 90.5 (>60); Glucose 120 mg/dL (70-100); Magnesium 1.9 mg/dL (1.9-2.7); Phosphorus 3.8 mg/dL (2.5-5.0); Sodium 135 mmol/L (135-145)
[2020-01-30 20:05] LABS: Anion Gap 1 mmol/L (2-11)
[2020-01-31] MEDS ORDERED: Phenol 1.4% Throat Spray 177 ml BTL MT PRN (01:18)
[2020-01-31 05:44] LABS: Hematocrit 37 % (42-52); Hemoglobin 12.7 g/dL (14.0-18.0); Mean Corpuscular HGB Conc 34 g/dL (31-36); Mean Corpuscular Hemoglobin 29 pg (27-31); Mean Corpuscular Volume 85 fL (80-94); Mean Platelet Volume 7.5 fL (7.4-10.4); Platelet Count 181 10^3/uL (150-450); Red Blood Count 4.35 10^6 /uL (4.18-5.48); Red Cell Distribution Width 14 % (10-15); White Blood Count 11.5 10^3/uL (3.5-10.8)
[2020-01-31 06:03] LABS: Albumin 3.3 g/dL (3.2-5.2); Albumin/Globulin Ratio 1.3 (1-3); BUN/Creatinine Ratio 23.9 (8-20); Calcium 8.9 mg/dL (8.6-10.3); EGFR African American 110.8 (>60); EGFR Non-African American 91.6 (>60); Globulin 2.6 g/dL (2-4); Magnesium 1.8 mg/dL (1.9-2.7); Potassium 4.6 mmol/L (3.5-5.0); Total Bilirubin 0.4 mg/dL (0.2-1.0); Total Protein 5.9 g/dL (6.4-8.9)
[2020-01-31] MEDS: methylPREDNISolone SOD 40 mg/ml 1 ml VIAL IV SCH (07:50)
[2020-01-31] MEDS: Famotidine IV 10 MG/ML 2 ml VIAL (20 mg) IV SLOW PU SCH (09:19)
[2020-01-31] MEDS: Polyethylene Glycol 3350 17 GM PACKET PO SCH (09:19)
[2020-01-31] MEDS: Enoxaparin 40 MG/0.4 ML SYR SUBCUT SCH (15:01)
[2020-02-01 05:54] LABS: Hematocrit 37 % (42-52); Hemoglobin 12.9 g/dL (14.0-18.0); Mean Corpuscular HGB Conc 35 g/dL (31-36); Mean Corpuscular Hemoglobin 29 pg (27-31); Mean Corpuscular Volume 85 fL (80-94); Mean Platelet Volume 7.3 fL (7.4-10.4); Platelet Count 193 10^3/uL (150-450); Red Blood Count 4.39 10^6 /uL (4.18-5.48); Red Cell Distribution Width 14 % (10-15); White Blood Count 10.2 10^3/uL (3.5-10.8)
[2020-02-01 06:12] LABS: Albumin 3.2 g/dL (3.2-5.2); Albumin/Globulin Ratio 1.3 (1-3); EGFR African American 123.1 (>60); EGFR Non-African American 101.7 (>60); Globulin 2.4 g/dL (2-4); Magnesium 1.8 mg/dL (1.9-2.7); Total Bilirubin 0.4 mg/dL (0.2-1.0); Total Protein 5.6 g/dL (6.4-8.9)
[2020-02-01 07:15] LABS: ABS Eosinophils 0.2 10^3/ul (0-0.6); ABS Lymphocytes 1.3 10^3/ul (1.0-4.8); ABS Monocytes 1.2 10^3/ul (0-0.8); ABS Neutrophils 7.4 10^3/ul (1.5-7.7); Eosinophil % 2.3 %; Lymphocyte % 12.6 %
[2020-02-01] MEDS ORDERED: Magnesium Sulfate 2 gm BAG 2 GM/50 ML BAG IVPB ONE (07:15)
[2020-02-01] MEDS: Polyethylene Glycol 3350 17 GM PACKET PO SCH (08:32)
[2020-02-01] MEDS: Enoxaparin 40 MG/0.4 ML SYR SUBCUT SCH (15:04)
[2020-02-02] MEDS: Polyethylene Glycol 3350 17 GM PACKET PO SCH (08:36)
[2020-02-02] MEDS: Enoxaparin 40 MG/0.4 ML SYR SUBCUT SCH (13:43)
[2020-02-03] MEDS: Polyethylene Glycol 3350 17 GM PACKET PO SCH (08:38)
[2020-02-03] MEDS: Enoxaparin 40 MG/0.4 ML SYR SUBCUT SCH (13:23)
[2020-02-04 07:06] LABS: Hematocrit 39 % (42-52); Hemoglobin 13.7 g/dL (14.0-18.0); Mean Corpuscular HGB Conc 35 g/dL (31-36); Mean Corpuscular Hemoglobin 30 pg (27-31); Mean Corpuscular Volume 85 fL (80-94); Mean Platelet Volume 7.6 fL (7.4-10.4); Platelet Count 199 10^3/uL (150-450); Red Blood Count 4.63 10^6 /uL (4.18-5.48); Red Cell Distribution Width 14 % (10-15); White Blood Count 10.4 10^3/uL (3.5-10.8)
[2020-02-04 07:13] LABS: BUN/Creatinine Ratio 23.9 (8-20); Calcium 8.7 mg/dL (8.6-10.3); EGFR African American 116.7 (>60); EGFR Non-African American 96.4 (>60); Potassium 4.7 mmol/L (3.5-5.0)
[2020-02-04] MEDS: Polyethylene Glycol 3350 17 GM PACKET PO SCH (07:58)
[2020-02-04 11:43] VITALS: BP 121/76
[2020-02-04] MEDS: Enoxaparin 40 MG/0.4 ML SYR SUBCUT SCH (14:15)
== END 2020-02-04 15:09 | disposition home or self-care (01) | DRG 207 ==
LOC: ED 10:08 → ICU 14:36 → MEDTELE 01-31 13:52 → ICU 01-31 23:22 → MEDTELE 02-01 14:49
PROVIDERS: ADMIT Internal Medicine; ATTEND Internal Medicine

== ENCOUNTER 2021-07-27 19:01 | Inpatient (IN) ==
[2021-07-27 21:39] LABS: Hematocrit 27 % (42-52); Hemoglobin 9.6 g/dL (14.0-18.0); Mean Corpuscular HGB Conc 35 g/dL (31-36); Mean Corpuscular Hemoglobin 32 pg (27-31); Mean Corpuscular Volume 91 fL (80-94); Mean Platelet Volume 7.5 fL (7.4-10.4); Platelet Count 103 10^3/uL (150-450); Red Blood Count 2.99 10^6 /uL (4.18-5.48); Red Cell Distribution Width 16 % (10-15); White Blood Count 3.1 10^3/uL (3.5-10.8)
[2021-07-27 21:54] LABS: ALT 12 U/L (7-52); AST 25 U/L (13-39); Albumin 3.9 g/dL (3.2-5.2); Albumin/Globulin Ratio 1.4 (1-3); Alkaline Phosphatase 72 U/L (35-149); Anion Gap 11 mmol/L (2-11); Blood Urea Nitrogen 27 mg/dL (6-24); CO2 Carbon Dioxide 30 mmol/L (22-32); Calcium 8.3 mg/dL (8.6-10.3); Chloride 93 mmol/L (101-111); Globulin 2.8 g/dL (2-4); Glucose 87 mg/dL (70-100); Indirect Bilirubin 0.5 mg/dL (0.3-1.0); Lipase < 10 U/L (11.0-82.0); Magnesium 1.4 mg/dL (1.9-2.7); Potassium 3.4 mmol/L (3.5-5.0); Sodium 134 mmol/L (135-145); Total Protein 6.7 g/dL (6.4-8.9); eGFR CKD-EPI 17.6 (>60)
[2021-07-27 22:08] LABS: RBC Morphology Normal (Normal)
[2021-07-27 22:09] LABS: ABS Eosinophils 0.1 10^3/ul (0-0.6); ABS Lymphocytes 0.2 10^3/ul (1.0-4.8); ABS Monocytes 0.3 10^3/ul (0-0.8); ABS Neutrophils 2.4 10^3/ul (1.5-7.7); Eosinophil % 3.1 %; Lymphocyte % 7.2 %; Nucleated Red Blood Cells % 0.1
[2021-07-27] MEDS ORDERED: Azithromycin 500 mg/250 ml NS 500 MG/250 ML BAG IVPB ONE (22:10)
[2021-07-27] MEDS ORDERED: Cefepime 1 GM in Dextrose 1 GM/50 ML BAG IV ONE (22:11)
[2021-07-27] MEDS ORDERED: Magnesium Sulf 4 GM/100 ML IV 4,000 MG/100 ML BAG IVPB ONE (23:52)
[2021-07-27] MEDS ORDERED: Potassium Chlor 20 meq TAB.ER PO ONE (23:52)
[2021-07-28 01:49] LABS: C Reactive Protein 51.18 mg/L (<8.01)
[2021-07-28 06:03] LABS: Albumin 3.6 g/dL (3.2-5.2); Albumin/Globulin Ratio 1.4 (1-3); Calcium 8.5 mg/dL (8.6-10.3); Globulin 2.6 g/dL (2-4); Potassium 3.3 mmol/L (3.5-5.0); Total Bilirubin 0.6 mg/dL (0.2-1.0); Total Protein 6.2 g/dL (6.4-8.9); eGFR CKD-EPI 14.7 (>60)
[2021-07-28 06:04] LABS: Hematocrit 27 % (42-52); Hemoglobin 9.5 g/dL (14.0-18.0); Mean Corpuscular HGB Conc 35 g/dL (31-36); Mean Corpuscular Hemoglobin 32 pg (27-31); Mean Corpuscular Volume 91 fL (80-94); Mean Platelet Volume 7.2 fL (7.4-10.4); Platelet Count 93 10^3/uL (150-450); Red Blood Count 2.96 10^6 /uL (4.18-5.48); Red Cell Distribution Width 16 % (10-15); White Blood Count 2.5 10^3/uL (3.5-10.8)
[2021-07-28 07:40] LABS: ABS Eosinophils 0.2 10^3/ul (0-0.6); ABS Lymphocytes 0.2 10^3/ul (1.0-4.8); ABS Monocytes 0.3 10^3/ul (0-0.8); ABS Neutrophils 1.8 10^3/ul (1.5-7.7); Anisocytosis 1+; Eosinophil % 9.4 %; Lymphocyte % 8.2 %; Nucleated Red Blood Cells % 0.1; Polychromasia 1+
[2021-07-28] MEDS ORDERED: Perflutren Lipid Microsphere 3 ML VIAL ONE (08:24)
[2021-07-28] MEDS: Chlorhexidine MOUTHWASH 0.12% 15 ML UDC SWISH SPIT SCH ×2 (08:47→20:43)
[2021-07-28] MEDS: Vitamin THERAPEUTIC TAB PO SCH (08:48)
[2021-07-28] MEDS: [UNRECOGNIZED DRUG - OTHER] PO SCH (08:49)
[2021-07-28] MEDS: POSACONAZOLE 100 MG PO SCH (08:49)
[2021-07-28 09:07] LABS: Magnesium 3.2 mg/dL (1.9-2.7)
[2021-07-28] MEDS: Aspirin EC 81 mg TAB.EC (enteric coated) PO SCH (09:09)
[2021-07-28] MEDS: Sulfamethox/Trimethoprim DS TAB 800/160 mg PO SCH (10:11)
[2021-07-28] MEDS ORDERED: GANCICLOVIR SODIUM IVPB ONE (10:20)
[2021-07-28] MEDS ORDERED: NS 0.9% IVPB ONE (10:20)
[2021-07-28] MEDS ORDERED: Ondansetron 4 mg VIAL 2 MG/ML 2 ml VIAL IV PRN (12:44)
[2021-07-28] MEDS: Cefepime 1 GM in Dextrose 1 GM/50 ML BAG IV SCH (20:35)
[2021-07-28] MEDS ORDERED: Cefepime ADVAN 1 GM in NS 0.9% 50 ML 50 ML IVPB SCH (22:00)
[2021-07-29 05:58] LABS: Hematocrit 29 % (42-52); Hemoglobin 10.2 g/dL (14.0-18.0); Mean Corpuscular HGB Conc 35 g/dL (31-36); Mean Corpuscular Hemoglobin 32 pg (27-31); Mean Corpuscular Volume 91 fL (80-94); Mean Platelet Volume 7.8 fL (7.4-10.4); Platelet Count 101 10^3/uL (150-450); Red Blood Count 3.19 10^6 /uL (4.18-5.48); Red Cell Distribution Width 16 % (10-15); White Blood Count 2.7 10^3/uL (3.5-10.8)
[2021-07-29 06:23] LABS: Albumin 3.5 g/dL (3.2-5.2); Albumin/Globulin Ratio 1.3 (1-3); Calcium 8.2 mg/dL (8.6-10.3); Globulin 2.7 g/dL (2-4); Magnesium 2.9 mg/dL (1.9-2.7); Phosphorus 4.8 mg/dL (2.5-5.0); Potassium 3.6 mmol/L (3.5-5.0); Total Bilirubin 0.5 mg/dL (0.2-1.0); Total Protein 6.2 g/dL (6.4-8.9); eGFR CKD-EPI 10.8 (>60)
[2021-07-29] MEDS ORDERED: VALGANCICLOVIR 450 MG PO SCH (08:00)
[2021-07-29 08:13] LABS: Anisocytosis 1+
[2021-07-29 08:14] LABS: ABS Eosinophils 0.3 10^3/ul (0-0.6); ABS Lymphocytes 0.2 10^3/ul (1.0-4.8); ABS Monocytes 0.3 10^3/ul (0-0.8); ABS Neutrophils 1.9 10^3/ul (1.5-7.7); Lymphocyte % 7.4 %; Nucleated Red Blood Cells % 0.1
[2021-07-29] MEDS ORDERED: diPHENhydraMINE 25 mg TAB PO ONE (08:15)
[2021-07-29 08:57] LABS: C Reactive Protein 24.89 mg/L (<8.01)
[2021-07-29 10:52] LABS: Hepatitis B Surface Antigen Nonreactive (Nonreactive)
[2021-07-29 11:09] LABS: Hepatitis B Surface Ab Not Immune (Immune)
[2021-07-29] MEDS: Aspirin EC 81 mg TAB.EC (enteric coated) PO SCH (13:37)
[2021-07-29] MEDS: [UNRECOGNIZED DRUG - OTHER] PO SCH (13:37)
[2021-07-29] MEDS: Chlorhexidine MOUTHWASH 0.12% 15 ML UDC SWISH SPIT SCH ×2 (13:38→21:58)
[2021-07-29] MEDS: Vitamin THERAPEUTIC TAB PO SCH (13:38)
[2021-07-29] MEDS: POSACONAZOLE 100 MG PO SCH (13:44)
[2021-07-29 15:29] LABS: Cryptococcus Antigen w/Titer Negative (Negative)
[2021-07-29] MEDS: GANCICLOVIR SODIUM IVPB SCH (16:22)
[2021-07-29] MEDS: NS 0.9% IVPB SCH (16:22)
[2021-07-29 17:43] LABS: Tacrolimus 8.8 ng/mL
[2021-07-29] MEDS: Cefepime 1 GM in Dextrose 1 GM/50 ML BAG IV SCH (22:02)
[2021-07-30 06:34] LABS: Hematocrit 30 % (42-52); Hemoglobin 10.5 g/dL (14.0-18.0); Mean Corpuscular HGB Conc 35 g/dL (31-36); Mean Corpuscular Hemoglobin 32 pg (27-31); Mean Corpuscular Volume 91 fL (80-94); Mean Platelet Volume 7.5 fL (7.4-10.4); Platelet Count 112 10^3/uL (150-450); Red Blood Count 3.27 10^6 /uL (4.18-5.48); Red Cell Distribution Width 16 % (10-15)
[2021-07-30 07:00] LABS: Albumin 3.6 g/dL (3.2-5.2); Albumin/Globulin Ratio 1.2 (1-3); Calcium 8.4 mg/dL (8.6-10.3); Globulin 2.9 g/dL (2-4); Total Bilirubin 0.5 mg/dL (0.2-1.0); Total Protein 6.5 g/dL (6.4-8.9)
[2021-07-30] MEDS: Chlorhexidine MOUTHWASH 0.12% 15 ML UDC SWISH SPIT SCH ×2 (07:41→21:42)
[2021-07-30] MEDS: Aspirin EC 81 mg TAB.EC (enteric coated) PO SCH (07:41)
[2021-07-30] MEDS: Vitamin THERAPEUTIC TAB PO SCH (07:41)
[2021-07-30] MEDS: POSACONAZOLE 100 MG PO SCH (07:41)
[2021-07-30] MEDS: [UNRECOGNIZED DRUG - OTHER] PO SCH (07:42)
[2021-07-30 07:46] LABS: ABS Eosinophils 0.2 10^3/ul (0-0.6); ABS Lymphocytes 0.2 10^3/ul (1.0-4.8); ABS Monocytes 0.4 10^3/ul (0-0.8); ABS Neutrophils 2.1 10^3/ul (1.5-7.7); Eosinophil % 8.1 %; Lymphocyte % 6.4 %
[2021-07-30] MEDS: Sulfamethox/Trimethoprim DS TAB 800/160 mg PO SCH (07:46)
[2021-07-30 07:47] LABS: RBC Morphology Normal (Normal)
[2021-07-30] MEDS ORDERED: diPHENhydraMINE 25 mg TAB PO ONE (08:04)
[2021-07-30] MEDS: NS 0.9% IVPB SCH (16:21)
[2021-07-30] MEDS: GANCICLOVIR SODIUM IVPB SCH (16:21)
[2021-07-30 17:07] LABS: Adenovirus Undetected (Undetected); Bordetella parapertussis Undetected (Undetected); Bordetella pertussis Undetected (Undetected); Chlamydophila pneumoniae Undetected (Undetected); Coronavirus 229E Undetected (Undetected); Coronavirus HKU1 Undetected (Undetected); Coronavirus NL63 Undetected (Undetected); Coronavirus OC43 Undetected (Undetected); Human Metapneumovirus Undetected (Undetected); Human Rhinovirus/Enterovirus Undetected (Undetected); Influenza A Undetected (Undetected); Influenza B Undetected (Undetected); Mycoplasmoides pneumoniae Undetected (Undetected); Parainfluenza Virus 1 Undetected (Undetected); Parainfluenza Virus 2 Undetected (Undetected); Parainfluenza Virus 3 Undetected (Undetected); Parainfluenza Virus 4 Undetected (Undetected); Respiratory Syncytial Virus Undetected (Undetected); Specimen Source NASOPHARYNGEAL SWAB
[2021-07-30 17:48] LABS: CMV DNA DETECT/QT, P Undetected IU/mL (Undetected)
[2021-07-30] MEDS: Cefepime 1 GM in Dextrose 1 GM/50 ML BAG IV SCH (21:41)
[2021-07-31 00:41] LABS: Aspergillus (Galactomannan) Ag <0.500 index (<0.5)
[2021-07-31] MEDS: [UNRECOGNIZED DRUG - OTHER] PO SCH (10:33)
[2021-07-31] MEDS: POSACONAZOLE 100 MG PO SCH (10:33)
[2021-07-31] MEDS: Chlorhexidine MOUTHWASH 0.12% 15 ML UDC SWISH SPIT SCH (10:34)
[2021-07-31] MEDS: Vitamin THERAPEUTIC TAB PO SCH (10:34)
[2021-07-31] MEDS: Aspirin EC 81 mg TAB.EC (enteric coated) PO SCH (10:34)
[2021-07-31 14:58] VITALS: BP 123/79
== END 2021-07-31 13:00 | disposition home or self-care (01) | DRG 867 ==
LOC: EDHOLD 19:01 → ED 19:01 → SUATTDRO 23:42 → MEDTELE 07-28 01:39
PROVIDERS: ADMIT Hospitalist; ATTEND Hospitalist

== ENCOUNTER 2021-08-21 16:05 | Inpatient (IN) ==
[2021-08-21] MEDS ORDERED: Meropenem 1 GM PREMIX(*) 1 GM/50 ML BAG IV ONE (16:07)
[2021-08-21 17:33] LABS: Hematocrit 24 % (42-52); Hemoglobin 7.9 g/dL (14.0-18.0); Mean Corpuscular HGB Conc 34 g/dL (31-36); Mean Corpuscular Hemoglobin 32 pg (27-31); Mean Corpuscular Volume 95 fL (80-94); Mean Platelet Volume 8.7 fL (7.4-10.4); Platelet Count 114 10^3/uL (150-450); Red Blood Count 2.48 10^6 /uL (4.18-5.48); Red Cell Distribution Width 17 % (10-15); White Blood Count 4.6 10^3/uL (3.5-10.8)
[2021-08-21 17:43] LABS: Activated Partial Thrombo Time 31.8 seconds (26.0-38.0); INR 1.41 (0.86-1.15)
[2021-08-21 17:48] LABS: ALT 6 U/L (7-52); AST 16 U/L (13-39); Albumin 3.6 g/dL (3.2-5.2); Albumin/Globulin Ratio 1.3 (1-3); Alkaline Phosphatase 54 U/L (35-149); Anion Gap 7 mmol/L (2-11); Blood Urea Nitrogen 23 mg/dL (6-24); C Reactive Protein 132.67 mg/L (<8.01); CO2 Carbon Dioxide 29 mmol/L (22-32); Calcium 8.4 mg/dL (8.6-10.3); Chloride 97 mmol/L (101-111); Globulin 2.8 g/dL (2-4); Glucose 144 mg/dL (70-100); Potassium 4.4 mmol/L (3.5-5.0); Sodium 133 mmol/L (135-145); Total Protein 6.4 g/dL (6.4-8.9); eGFR CKD-EPI 23.9 (>60)
[2021-08-21 17:50] LABS: Troponin I 0.01 ng/mL (<0.03)
[2021-08-21 18:10] LABS: Anisocytosis 1+
[2021-08-21 18:12] LABS: ABS Eosinophils 0.1 10^3/ul (0-0.6); ABS Lymphocytes 0.2 10^3/ul (1.0-4.8); ABS Monocytes 0.5 10^3/ul (0-0.8); ABS Neutrophils 3.8 10^3/ul (1.5-7.7); Eosinophil % 1.2 %; Lymphocyte % 3.8 %; Nucleated Red Blood Cells % 0.1
[2021-08-21 23:25] LABS: Hematocrit 20 % (42-52); Hemoglobin 6.7 g/dL (14.0-18.0)
[2021-08-22 01:45] LABS: Total Iron Binding Capacity 199 mcg/dL (250-450); Transferrin 142 mg/dL (203-362)
[2021-08-22 01:50] LABS: % Iron Saturation 10 % (15-55); Iron < 20 ug/dL (50-212); Unsaturated Iron Binding 179 ug/dL
[2021-08-22 02:08] LABS: Ferritin 1478.9 ng/mL (24-336)
[2021-08-22 02:11] LABS: Folate > 20.00 ng/mL (5.90-24.80)
[2021-08-22 02:12] LABS: Vitamin B12 938 pg/mL (180-914)
[2021-08-22] MEDS ORDERED: Meropenem 1 GM PREMIX(*) 1 GM/50 ML BAG IV SCH (06:00)
[2021-08-22] MEDS ORDERED: Multivitamins/Minerals TAB PO SCH (09:00)
[2021-08-22] MEDS ORDERED: Chlorhexidine MOUTHWASH 0.12% 15 ML UDC SWISH SPIT SCH (09:00)
[2021-08-22] MEDS ORDERED: BIOTIN 5 MG PO SCH (09:00)
[2021-08-22] MEDS ORDERED: Aspirin EC 81 mg TAB.EC (enteric coated) PO SCH (09:00)
[2021-08-22 09:57] LABS: Hematocrit 28 % (42-52); Hemoglobin 9.6 g/dL (14.0-18.0); Mean Corpuscular HGB Conc 34 g/dL (31-36); Mean Corpuscular Hemoglobin 32 pg (27-31); Mean Corpuscular Volume 93 fL (80-94); Platelet Count 109 10^3/uL (150-450); Red Blood Count 3.02 10^6 /uL (4.18-5.48); Red Cell Distribution Width 18 % (10-15)
[2021-08-22 10:14] LABS: Albumin 3.3 g/dL (3.2-5.2); Albumin/Globulin Ratio 1.3 (1-3); Calcium 8.9 mg/dL (8.6-10.3); Direct Bilirubin 0.1 mg/dL (0.03-0.18); Globulin 2.6 g/dL (2-4); Indirect Bilirubin 0.6 mg/dL (0.3-1.0); Potassium 3.6 mmol/L (3.5-5.0); Total Bilirubin 0.7 mg/dL (0.2-1.0); Total Protein 5.9 g/dL (6.4-8.9)
[2021-08-22 10:21] LABS: ABS Eosinophils 0.6 10^3/ul (0-0.6); ABS Lymphocytes 0.3 10^3/ul (1.0-4.8); ABS Monocytes 0.5 10^3/ul (0-0.8); ABS Neutrophils 2.5 10^3/ul (1.5-7.7); Eosinophil % 16.2 %; Lymphocyte % 6.6 %; Nucleated Red Blood Cells % 0.1; RBC Morphology Normal (Normal)
[2021-08-22 10:56] VITALS: BP 118/74
[2021-08-22 14:37] LABS: Hematocrit 29 % (42-52); Hemoglobin 9.7 g/dL (14.0-18.0); Mean Corpuscular HGB Conc 34 g/dL (31-36); Mean Corpuscular Hemoglobin 32 pg (27-31); Mean Corpuscular Volume 95 fL (80-94); Mean Platelet Volume 8.7 fL (7.4-10.4); Platelet Count 105 10^3/uL (150-450); Red Cell Distribution Width 18 % (10-15); White Blood Count 3.9 10^3/uL (3.5-10.8)
[2021-08-22 15:38] LABS: Corrected Retic Count 1.2 % (0.5-1.5); Hematocrit for Retic CNT 28 % (42-52); Immature Retic Fraction 0.52; RBC Retic Count 3.01 10^6/uL (4.18-5.48)
[2021-08-23] MEDS ORDERED: Sulfamethox/Trimethoprim DS TAB 800/160 mg PO SCH (09:00)
== END 2021-08-22 17:30 | disposition home or self-care (01) | DRG 177 ==
LOC: ED 16:05 → EDHOLD 20:14 → SUATTDRO 20:14 → MED 08-22 00:46
PROVIDERS: ADMIT Internal Medicine; ATTEND Internal Medicine

== ENCOUNTER 2022-05-29 13:03 | Observation (INO) ==
[2022-05-29] MEDS ORDERED: Ondansetron ODT 4 mg TAB 4 MG TAB PO ONE (14:02)
[2022-05-29 15:01] LABS: Hematocrit 37 % (42-52); Hemoglobin 12.1 g/dL (14.0-18.0); Mean Corpuscular HGB Conc 33 g/dL (31-36); Mean Corpuscular Hemoglobin 30 pg (27-31); Mean Corpuscular Volume 92 fL (80-94); Mean Platelet Volume 7.7 fL (7.4-10.4); Platelet Count 182 10^3/uL (150-450); Red Blood Count 4.05 10^6 /uL (4.18-5.48); Red Cell Distribution Width 14 % (10-15); White Blood Count 2.8 10^3/uL (3.5-10.8)
[2022-05-29 15:09] LABS: Activated Partial Thrombo Time 33.6 seconds (26.0-38.0); INR 1.35 (0.89-1.11)
[2022-05-29 15:45] LABS: Albumin 4.4 g/dL (3.2-5.2); Albumin/Globulin Ratio 1.8 (1-3); C Reactive Protein 133.44 mg/L (<8.01); Calcium 9.3 mg/dL (8.6-10.3); Globulin 2.4 g/dL (2-4); Total Bilirubin 0.6 mg/dL (0.2-1.0); Total Protein 6.8 g/dL (6.4-8.9); eGFR CKD-EPI 68.3 (>60)
[2022-05-29 15:53] LABS: Potassium 5.1 mmol/L (3.5-5.0)
[2022-05-29 16:01] LABS: RBC Morphology Normal (Normal); Toxic Granulation 1+
[2022-05-29 16:02] LABS: ABS Eosinophils 0.2 10^3/ul (0-0.6); ABS Lymphocytes 0.3 10^3/ul (1.0-4.8); ABS Monocytes 0.2 10^3/ul (0-0.8); ABS Neutrophils 2.1 10^3/ul (1.5-7.7); Eosinophil % 5.4 %; Lymphocyte % 11.6 %; Nucleated Red Blood Cells % 0.1
[2022-05-29] MEDS ORDERED: Lactated Ringers 1000 ml BAG 1,000 ML IV ONE ×2 (16:40→17:57)
[2022-05-29 16:54] LABS: High Sensitivity Troponin 1 Hr 3 pg/mL (<20)
[2022-05-29] MEDS ORDERED: Acetaminophen IV 1 GM/100ML 1,000 MG/100 ML BAG IV ONE (18:40)
[2022-05-29] MEDS ORDERED: Piperacillin/Tazobac ADVAN 3.375 GM in NS 0.9% 100 ml BAG 100 ML IV ONE (20:01)
[2022-05-29] MEDS ORDERED: Ondansetron 4 mg VIAL 2 MG/ML 2 ml VIAL IV PRN (21:08)
[2022-05-29] MEDS ORDERED: Zosyn per Pharmacy NOTE FOLLOW UP SCH (22:00)
[2022-05-30] MEDS: ZOSYN 3.375 GM Q8H per EXTENDED INFUSION IV SCH ×3 (02:28→17:11)
[2022-05-30 06:14] LABS: Hematocrit 32 % (42-52); Hemoglobin 10.4 g/dL (14.0-18.0); Mean Corpuscular HGB Conc 32 g/dL (31-36); Mean Corpuscular Hemoglobin 30 pg (27-31); Mean Corpuscular Volume 93 fL (80-94); Mean Platelet Volume 7.5 fL (7.4-10.4); Platelet Count 149 10^3/uL (150-450); Red Blood Count 3.47 10^6 /uL (4.18-5.48); Red Cell Distribution Width 15 % (10-15); White Blood Count 2.4 10^3/uL (3.5-10.8)
[2022-05-30 06:54] LABS: Calcium 8.7 mg/dL (8.6-10.3)
[2022-05-30 06:57] LABS: Potassium 5.6 mmol/L (3.5-5.0)
[2022-05-30 07:00] LABS: eGFR CKD-EPI 81.2 (>60)
[2022-05-30 07:48] LABS: ABS Eosinophils 0.1 10^3/ul (0-0.6); ABS Lymphocytes 0.4 10^3/ul (1.0-4.8); ABS Monocytes 0.2 10^3/ul (0-0.8); ABS Neutrophils 1.7 10^3/ul (1.5-7.7); Eosinophil % 5.6 %; Lymphocyte % 16.6 %; RBC Morphology Normal (Normal)
[2022-05-30] MEDS ORDERED: Sulfamethox/Trimethoprim DS TAB 800/160 mg PO SCH (09:00)
[2022-05-30] MEDS: Aspirin EC 81 mg TAB.EC (enteric coated) PO SCH (10:51)
[2022-05-30] MEDS: VALGANCICLOVIR 450 MG PO SCH (10:52)
[2022-05-30] MEDS: Cholecalciferol (VIT D3) 400 units TAB PO SCH (12:02)
[2022-05-30] MEDS ORDERED: SODIUM ZIRCONIUM CYCLOSILICATE 10 GM PACKET PO ONE (15:06)
[2022-05-30 16:11] LABS: Magnesium 1.4 mg/dL (1.9-2.7)
[2022-05-30] MEDS ORDERED: Magnesium Sulfate 2 gm BAG 2 GM/50 ML BAG IVPB ONE (18:54)
[2022-05-31] MEDS: ZOSYN 3.375 GM Q8H per EXTENDED INFUSION IV SCH ×2 (01:44→09:01)
[2022-05-31 07:55] LABS: Hematocrit 33 % (42-52); Hemoglobin 10.8 g/dL (14.0-18.0); Mean Corpuscular HGB Conc 33 g/dL (31-36); Mean Corpuscular Hemoglobin 30 pg (27-31); Mean Corpuscular Volume 92 fL (80-94); Mean Platelet Volume 7.9 fL (7.4-10.4); Platelet Count 186 10^3/uL (150-450); Red Blood Count 3.59 10^6 /uL (4.18-5.48); Red Cell Distribution Width 15 % (10-15); White Blood Count 2.1 10^3/uL (3.5-10.8)
[2022-05-31 08:17] LABS: Calcium 8.8 mg/dL (8.6-10.3); Potassium 4.8 mmol/L (3.5-5.0); eGFR CKD-EPI 80.3 (>60)
[2022-05-31] MEDS: VALGANCICLOVIR 450 MG PO SCH (09:05)
[2022-05-31 09:12] LABS: Magnesium 2.1 mg/dL (1.9-2.7)
[2022-05-31 10:20] LABS: ABS Eosinophils 0.1 10^3/ul (0-0.6); ABS Lymphocytes 0.5 10^3/ul (1.0-4.8); ABS Monocytes 0.2 10^3/ul (0-0.8); ABS Neutrophils 1.3 10^3/ul (1.5-7.7); Eosinophil % 5.7 %; Lymphocyte % 23.7 %
[2022-05-31 10:58] VITALS: BP 119/74
[2022-05-31] MEDS: Aspirin EC 81 mg TAB.EC (enteric coated) PO SCH (11:53)
[2022-05-31] MEDS: Cholecalciferol (VIT D3) 400 units TAB PO SCH (11:53)
[2022-06-01 18:33] LABS: Adenovirus Undetected (Undetected); Bordetella parapertussis Undetected (Undetected); Bordetella pertussis Undetected (Undetected); Chlamydophila pneumoniae Undetected (Undetected); Coronavirus 229E Undetected (Undetected); Coronavirus HKU1 Undetected (Undetected); Coronavirus NL63 Undetected (Undetected); Coronavirus OC43 Undetected (Undetected); Human Metapneumovirus Undetected (Undetected); Human Rhinovirus/Enterovirus Detected (Undetected); Influenza A Undetected (Undetected); Influenza B Undetected (Undetected); Mycoplasmoides pneumoniae Undetected (Undetected); Parainfluenza Virus 1 Undetected (Undetected); Parainfluenza Virus 2 Undetected (Undetected); Parainfluenza Virus 3 Undetected (Undetected); Parainfluenza Virus 4 Undetected (Undetected); Respiratory Syncytial Virus Undetected (Undetected); Specimen Source NASOPHARYNGEAL SWAB
[2022-06-01 19:03] LABS: CMV DNA DETECT/QT, P Undetected IU/mL (Undetected)
== END 2022-05-31 15:00 | disposition home or self-care (01) ==
LOC: ED 13:03 → EDHOLD 13:03 → MED 05-30 16:43
PROVIDERS: ADMIT Student in an Organized Health Care Education/Training Program; ATTEND Student in an Organized Health Care Education/Training Program

== ENCOUNTER 2024-06-24 07:54 | Observation (INO) ==
[2024-06-24] MEDS: Lactated Ringers 1000 ml BAG 1,000 ML IV ONE (09:18)
[2024-06-24] MEDS: Ondansetron 4 mg VIAL 2 MG/ML 2 ml VIAL IV ONE ×2 (09:18→16:59)
[2024-06-24 09:28] LABS: Hematocrit 40.2 % (38-53); Hemoglobin 13.6 g/dL (13.2-16.3); Mean Corpuscular Hemoglobin 31.3 pg (27-33); Mean Corpuscular Hgb Conc 33.9 g/dL (31-36); Mean Corpuscular Volume 92.4 fL (80-97); Mean Platelet Volume 8.6 fL (7.5-11.2); Platelet Count 72 10^3/uL (150-450); Red Blood Count 4.35 10^6/uL (4.06-5.63); Red Cell Distribution Width 14.1 % (12-17); White Blood Count 3.6 10^3/uL (3.6-10.2)
[2024-06-24 10:03] LABS: Albumin 4.5 g/dL (3.2-5.2); Calcium 8.9 mg/dL (8.6-10.3); Creatinine, Serum 1.42 mg/dL (0.67-1.17); Globulin 2.3 g/dL (2-4); Potassium 4.9 mmol/L (3.5-5.0); Total Bilirubin 0.6 mg/dL (0.2-1.0); Total Protein 6.8 g/dL (6.4-8.9); eGFR CKD-EPI 62.9 (>60)
[2024-06-24 10:05] LABS: ABS Eosinophils 0.1 10^3/uL (0.0-0.5); ABS Lymphocytes 0.6 10^3/uL (1.0-4.8); ABS Monocytes 0.6 10^3/uL (0.0-1.1); ABS Neutrophils 2.3 10^3/uL (1.5-7.6); ABS Nucleated RBC 0.01 10^3/ul; Eosinophil % 1.8 %; Lymphocyte % 16.3 %; Nucleated Red Blood Cells % 0.2 %/100WBC (0.0-0.8); RBC Morphology Normal (Normal)
[2024-06-24] MEDS: Piperacillin/Tazobac 3.375 BAG 3.375 GM/100 ML BAG IV ONE (14:14)
[2024-06-24] MEDS: Azithromycin 500 mg/250 ml NS 500 MG/250 ML BAG IVPB ONE (15:11)
[2024-06-24] MEDS: Morphine 4 MG/ML VIAL (1 ml) IV ONE (16:59)
[2024-06-24] MEDS ORDERED: Al Hydrox/Mg Hydrox/Simet LIQ 30 ML UDC PO PRN (17:05)
[2024-06-24] MEDS: NS 0.9% 1000 ml BAG 1,000 ML IV SCH (17:33)
[2024-06-24] MEDS: Sulfamethox/Trimethoprim DS TAB 800/160 mg PO SCH (19:01)
[2024-06-25 06:37] LABS: Calcium 7.6 mg/dL (8.6-10.3); Creatinine, Serum 1.12 mg/dL (0.67-1.17); Magnesium 1.4 mg/dL (1.9-2.7); Potassium 4.9 mmol/L (3.5-5.0); eGFR CKD-EPI 83.6 (>60)
[2024-06-25 07:15] LABS: ABS Lymphocytes 0.6 10^3/uL (1.0-4.8); ABS Monocytes 0.5 10^3/uL (0.0-1.1); ABS Neutrophils 2.1 10^3/uL (1.5-7.6); Eosinophil % 1.2 %; Hematocrit 33.7 % (38-53); Hemoglobin 11.8 g/dL (13.2-16.3); Lymphocyte % 19.4 %; Mean Corpuscular Hgb Conc 35.1 g/dL (31-36); Mean Platelet Volume 9.1 fL (7.5-11.2); Nucleated Red Blood Cells % 0.1 %/100WBC (0.0-0.8); Platelet Count 63 10^3/uL (150-450); RBC Morphology Normal (Normal); Red Cell Distribution Width 14.2 % (12-17); White Blood Count 3.3 10^3/uL (3.6-10.2)
[2024-06-25] MEDS: Magnesium Sulf 4 GM/100 ML IV 4,000 MG/100 ML BAG IVPB ONE (09:16)
[2024-06-25] MEDS: Aspirin EC 81 mg TAB.EC (enteric coated) PO SCH (09:32)
[2024-06-25] MEDS: DOXYcycline 100 MG in NS 0.9% 250 ml 250 ML IVPB SCH (11:32)
[2024-06-26 08:45] LABS: Hematocrit 35.2 % (38-53); Hemoglobin 12.1 g/dL (13.2-16.3); Mean Corpuscular Hemoglobin 31.5 pg (27-33); Mean Corpuscular Hgb Conc 34.3 g/dL (31-36); Mean Corpuscular Volume 91.7 fL (80-97); Mean Platelet Volume 8.9 fL (7.5-11.2); Platelet Count 61 10^3/uL (150-450); Red Blood Count 3.83 10^6/uL (4.06-5.63); Red Cell Distribution Width 13.9 % (12-17); White Blood Count 2.9 10^3/uL (3.6-10.2)
[2024-06-26 09:26] LABS: Anion Gap 6 mmol/L (2-16); Blood Urea Nitrogen 11 mg/dL (6-24); CO2 Carbon Dioxide 20 mmol/L (22-32); Calcium 7.3 mg/dL (8.6-10.3); Chloride 110 mmol/L (101-111); Glucose 74 mg/dL (70-100); Sodium 136 mmol/L (135-145); eGFR CKD-EPI 95.8 (>60)
[2024-06-26 09:30] LABS: ABS Eosinophils 0.2 10^3/uL (0.0-0.5); ABS Lymphocytes 0.9 10^3/uL (1.0-4.8); ABS Monocytes 0.4 10^3/uL (0.0-1.1); ABS Neutrophils 1.5 10^3/uL (1.5-7.6); Eosinophil % 5.5 %; Lymphocyte % 29.6 %; Nucleated Red Blood Cells % 0.1 %/100WBC (0.0-0.8); RBC Morphology Normal (Normal)
[2024-06-26 10:22] VITALS: BP 135/79
[2024-06-26 19:16] LABS: Tacrolimus 6.7 ng/mL
[2024-06-26 19:46] LABS: Tacrolimus 5.6 ng/mL
== END 2024-06-26 11:30 | disposition home or self-care (01) ==
LOC: ED 07:54 → EDHOLD 07:54 → MEDTELE 17:40
PROVIDERS: ADMIT Internal Medicine; ATTEND Internal Medicine